=== PATIENT | male | born 1965 | race Caucasian/White ===

== ENCOUNTER → 2021-03-19 10:46 | Outpatient (BNVA) | payer SELFPAY | PROVIDERS: Family Provider Nurse Practitioner Family; PCP Nurse Practitioner Family; Visit Provider Emergency Medicine | DX: R10.11 Right upper quadrant pain (principal); R11.0 Nausea; R10.9 Unspecified abdominal pain | CPT/HCPCS: 80053; 83690; 85025 ==

== ENCOUNTER 2021-04-22 08:23 | Outpatient (CLI) | payer SELFPAY ==
--- NOTE | 2021-04-22 08:45 | US_ITS ---
WS: [id number] RIGHT UPPER QUADRANT ULTRASOUND HISTORY: R10.9 - Unspecified abdominal pain COMPARISON: None available. Liver: 13.7 cm in length. Normal size liver. No bile duct dilatation or mass. Gallbladder: Normally distended. Cholelithiasis without acute cholecystitis. There is very mild thick ening of the gallbladder wall. Gallbladder wall measures just greater than 3 mm. CBD: 0.3 cm Pancreas: Not well visualized. Right kidney: 11.0 cm in length. Normal size and echogenicity. No hydronephrosis or mass. Aorta and IVC: Unremarkable abdominal aorta and IVC. No ascites. US/US gall bladder [id number] IMPRESSION: 1. Cholelithiasis with mild diffuse gallbladder wall thickening. No evidence f or acute cholecystitis or Johnson's sign during this examination. 2. No bile duct dilatation.
== END 2021-04-22 08:24 | disposition home or self-care (01) ==
PROVIDERS: PCP Nurse Practitioner Family; Visit Provider Emergency Medicine
DX: R10.9 Unspecified abdominal pain (principal); K80.20 Calculus of gallbladder without cholecystitis without obstruction
CPT/HCPCS: 76705

== ENCOUNTER → 2022-02-21 08:19 | Outpatient (BNVA) | payer MEDICAID, SELFPAY | PROVIDERS: PCP Nurse Practitioner Family; Referring Provider Emergency Medicine; Visit Provider Surgery | DX: K80.20 Calculus of gallbladder without cholecystitis without obstruction (principal) | CPT/HCPCS: 99203 ==

== ENCOUNTER 2022-05-22 21:04 | Observation (INO) | payer MEDICAID, SELFPAY ==
--- NOTE | 2022-05-22 21:11 | USR_ITS ---
PROCEDURE INFORMATION: Exam: US Abdomen, Limited; Right Upper Quadrant Exam date and time: 05/22/2022 9:44 PM Age: 56 years old Clinical indication: Abdominal pain; Additional info: Abd pain TECHNIQUE: Imaging protocol: Real time ultrasound of the abdomen with image documentation. Limited exam focused on the right upper quadrant. COMPARISON: US gall bladder [id number] 04/22/2021 8:35 AM FINDINGS: Liver: Normal. No masses. Gallbladder: Normal. No gallstones. There is no gallbladder wall thickening. Negative sonographic Johnson sign. Biliary ducts: Normal. No stones. No dilation. Pancreas: Visualized pancreas is unremarkable. Right kidney: Right kidney measures 11.7 cm in length. No mass. No hydronephrosis. US/US gall bladder [id number] IMPRESSION: No acute findings.
[2022-05-22 21:13] VITALS: BP 133/100; PULSE 107; RESP 18; TEMP 36.8; O2SAT 93; BMI 23.3
--- NOTE | 2022-05-22 21:14 | W.ED.ABDPA2 ---
HPI - Abdominal Pain General: Chief Complaint: Abdominal Pain Stated Complaint: ABD Pain Time Seen by Provider: 05/22/22 21:08 Source: patient Mode of arrival: ambulatory Limitations: no limitations History of Present Illness: 56-year-old male has a history of cholelithiasis since had abdominal pain in the past. States he had seen a surgeon back in January was going to have an outpatient cholecystectomy but states that he was busy and never got it done. He states that over the last 2 days has been having right upper quadrant abdominal pain again. Said some nausea denies any vomiting. States pain currently is a 5 out of 10 denies any worsening proving factors denies any fevers. Denies any radiation of the pain. Associated Symptoms: Denies chills, diarrhea, dysuria, fever(s), nausea and vomiting Review of Systems Const: Denies: fever(s), chills, body aches or change in appetite Eyes: Denies: blurry vision or eye discomfort ENMT: Denies: throat pain or dental pain Card: Denies: chest pain Resp: Denies: dyspnea GI: Reports: abdominal pain; Denies: nausea, vomiting or diarrhea : Denies: dysuria Musc: Denies: neck pain or back pain Skin/Breast: Denies: rash Neuro: Denies: headache(s) Psych: Denies: depression Johnathan/Lymph: Denies: easy bruising All/Imm: Denies: urticaria PFSH ED PFSH: Medical History Cholelithiases Family History Other CAD (coronary artery disease) Chronic kidney disease (CKD) Diabetes Hypertension Denies family history of Dementia Anesthesia complication Lung disease Stroke Social History Smoking and tobacco status: current every day smoker Alcohol intake: never Lives independently: Yes Physical Exam Const: COMMON NORMALS: no acute distress, patient oriented x3 and healthy appearing HENMT: COMMON NORMALS: normocephalic and atraumatic HEAD & SCALP: normocephalic and atraumatic Eye: COMMON NORMALS: Equal, round and reactive pupils present and EOMs intact bilaterally PUPIL: Yes Equal, round and reactive pupils present Neck/C-Spine: COMMON NORMALS: full ROM and supple Chest: COMMONS NORMALS: normal inspection of the chest and normal palpation of entire chest wall Resp: COMMON NORMALS: normal respiratory effort, No retractions, No use of accessory muscles and clear to auscultation bilaterally AUSCULTATION: clear to auscultation bilaterally Cardio: COMMON NORMALS: regular rate, regular rhythm and No murmurs present (Cardio) RATE: regular rate RHYTHM: regular rhythm GI: COMMON NORMALS: Normal to inspection, nondistended, normoactive bowel sounds present, Soft to palpation and no masses PALPATION: Yes Soft to palpation and Yes Tenderness to palpation present (GI) Details: RUQ Extremity: COMMON NORMALS: normal to inspection and full ROM Neuro: COMMON NORMALS: patient oriented x3, moves all extremities and no focal motor deficits Psych: COMMON NORMALS: mental status grossly normal, Normal thought process present and cooperative THOUGHT PROCESS: Normal thought process present Skin: COMMON NORMALS: no rashes or lesions noted and no wounds GENERAL SKIN EXAM: no rashes or lesions noted Course Vital Signs: Vital signs: Vital Signs Temperature 98.2 F 05/22/22 21:13 Pulse Rate 107 H 05/22/22 21:13 Respiratory Rate 20 H 05/22/22 21:27 Blood Pressure 133/100 05/22/22 21:13 Pulse Oximetry 93 05/22/22 21:13 MDM - Abdominal Pain Medical Decision Making Patient presents here with abdominal pain he does have an elevated white count CT finding concerning for cholecystitis. I did speak to surgery on-call will admit at this time for planned cholecystectomy. Lab Data : 05/22/22 21:10 05/22/22 21:10 Labs/Radiology: Radiology Impressions Gallbladder Ultrasound 05/22/22 21:11 IMPRESSION: No acute findings. ADDENDUM: 05/22/[id number] abdomen/pelvis report. Gallstones are present within the gallbladder and better appreciated on CT including a 2 cm stone in the gallbladder neck. There is also mild edematous wall thickening of the gallbladder and distension which is also better appreciated on CT. Abdomen/Pelvis CT 05/22/22 22:06 IMPRESSION: Cholelithiasis with a 2 cm stone at the gallbladder neck and mild edematous wall thickening and distention of the gallbladder. These findings may reflect acute cholecystitis in the appropriate clinical context. COMMENTS: Consistent with the [employer]'s Incidental Findings Committee white paper (J Am Terrance Radiol 2018): Any incidental renal lesion less than 1 cm or classified as too small to characterize, or any incidental cystic renal lesion characterized as simple-appearing, is likely benign. No follow-up imaging is recommended for these lesions per consensus recommendations based on imaging criteria. Laboratory Results WBC 17.3 10^3/uL (4.0-10.0) H 05/22/22 21:10 RBC 5.98 10^6/uL (4.1-5.3) H 05/22/22 21:10 Hgb 18.4 g/dL (11.7-16.6) H 05/22/22 21:10 Hct 51.8 % (42.0-52.0) 05/22/22 21:10 MCV 86.6 fl (80-94) 05/22/22 21:10 MCH 30.8 pg (28.0-34.0) 05/22/22 21:10 MCHC 35.5 g/dL (30.0-36.0) 05/22/22 21:10 RDW 13.2 % (12.1-15.1) 05/22/22 21:10 Plt Count 265 10^3/cmm (130-400) 05/22/22 21:10 MPV 10.2 fL (7.4-10.4) 05/22/22 21:10 Neut % (Auto) 74.8 % 05/22/22 21:10 Lymph % (Auto) 14.2 % 05/22/22 21:10 [place] % (Auto) 9.3 % 05/22/22 21:10 Eos % (Auto) 0.9 % 05/22/22 21:10 Baso % (Auto) 0.3 % 05/22/22 21:10 Neut # (Auto) 12.94 10^3/uL (1.8-7.7) H 05/22/22 21:10 Lymph # (Auto) 2.5 10^3/uL (0.8-4.8) 05/22/22 21:10 [place] # (Auto) 1.6 10^3/uL (0.2-0.9) H 05/22/22 21:10 Eos # (Auto) 0.2 10^3/uL (0.0-0.8) 05/22/22 21:10 Baso # (Auto) 0.1 10^3/uL (0.0-0.1) 05/22/22 21:10 Nucleated RBC % (auto) 0 % 05/22/22 21:10 Nucleated RBCs # 0.0 /100WBC 05/22/22 21:10 Sodium 137 mmol/L (136-145) 05/22/22 21:10 Potassium 3.4 mmol/L (3.5-5.1) L 05/22/22 21:10 Chloride 98 mmol/L (98-107) 05/22/22 21:10 Carbon Dioxide 26 mmol/L (22-29) 05/22/22 21:10 Anion Gap 16.4 (5-19) 05/22/22 21:10 BUN 4 mg/dL (6-20) L 05/22/22 21:10 Creatinine 0.8 mg/dL (0.7-1.2) 05/22/22 21:10 GFR Calculation 100.7 mL/min (90-130) 05/22/22 21:10 Glucose 97 mg/dL (65-115) 05/22/22 21:10 Calculated Osmolality 281 mOsm/kg (285-295) L 05/22/22 21:10 Calcium 10.2 mg/dL (8.5-10.5) 05/22/22 21:10 Total Bilirubin 0.6 mg/dL (0.15-1.2) 05/22/22 21:10 AST 12 U/L (0-40) 05/22/22 21:10 ALT 11 U/L (0-41) 05/22/22 21:10 Alkaline Phosphatase 110 IU/L (40-130) 05/22/22 21:10 Total Protein 8.3 g/dL (6.6-8.7) 05/22/22 21:10 Albumin 4.8 g/dL (3.5-5.2) 05/22/22 21:10 Globulin 3.5 g/dL (1.3-4.6) 05/22/22 21:10 Lipase 18 U/L (13-60) 05/22/22 21:10 Discharge Plan Discharge Patient Disposition: Placed in Observation Clinical Impression: Acute cholecystitis Coding Level of Care Code ED Generating Station Mechanic for Chg Fwd Exam Comprehensive
[2022-05-22 21:27] VITALS: RESP 20
[2022-05-22] MEDS: morphine 4 mg/mL SDV 1 mL IVP (21:27)
[2022-05-22] MEDS: ondansetron 2 mg/ML SDV 2 mL 4 MG IVP (21:27)
[2022-05-22] MEDS: sodium chloride 0.9% 1,000 ML 999 ML IV (21:36)
[2022-05-22 21:59] LABS: Basophils # 0.1 10^3/uL (0.0-0.1); Basophils % 0.3 %; Eosinophils # 0.2 10^3/uL (0.0-0.8); Eosinophils % 0.9 %; Hematocrit 51.8 % (42.0-52.0); Hemoglobin 18.4 g/dL (11.7-16.6); Lymphocytes # 2.5 10^3/uL (0.8-4.8); Lymphocytes % 14.2 %; Mean Corpuscular HGB Conc 35.5 g/dL (30.0-36.0); Mean Corpuscular Hemoglobin 30.8 pg (28.0-34.0); Mean Corpuscular Volume 86.6 fl (80-94); Mean Platelet Volume 10.2 fL (7.4-10.4); Monocytes # 1.6 10^3/uL (0.2-0.9); Monocytes % 9.3 %; Neutrophils # 12.94 10^3/uL (1.8-7.7); Neutrophils % 74.8 %; Nucleated Red Blood Cells % 0 %; Platelet Count 265 10^3/cmm (130-400); Red Blood Count 5.98 10^6/uL (4.1-5.3); Red Cell Distribution Width 13.2 % (12.1-15.1); White Blood Count 17.3 10^3/uL (4.0-10.0)
[2022-05-22 22:01] LABS: Alanine Aminotransferase 11 U/L (0-41); Albumin Level 4.8 g/dL (3.5-5.2); Alkaline Phosphatase 110 IU/L (40-130); Anion Gap 16.4 (5-19); Aspartate Amino Transferase 12 U/L (0-40); Blood Urea Nitrogen 4 mg/dL (6-20); Calcium 10.2 mg/dL (8.5-10.5); Carbon Dioxide 26 mmol/L (22-29); Chloride 98 mmol/L (98-107); Globulin 3.5 g/dL (1.3-4.6); Glomerular Filtration Rate 100.7 mL/min (90-130); Glucose 97 mg/dL (65-115); Lipase 18 U/L (13-60); Osmolality Calculated 281 mOsm/kg (285-295); Potassium 3.4 mmol/L (3.5-5.1); Sodium 137 mmol/L (136-145); Total Bilirubin 0.6 mg/dL (0.15-1.2); Total Protein 8.3 g/dL (6.6-8.7)
--- NOTE | 2022-05-22 22:06 | CTR_ITS ---
PROCEDURE INFORMATION: Exam: CT Abdomen And Pelvis With Contrast Exam date and time: 05/22/2022 10:32 PM Age: 56 years old Clinical indication: Abdominal pain; Localized; Right upper quadrant (ruq); Patient HX: C/O ruq pain w known cholelithiasis; Additional info: Abd pain TECHNIQUE: Imaging protocol: Computed tomography of the abdomen and pelvis with contrast. Radiation optimization: All CT scans at this facility use at least one of these dose optimization techniques: automated exposure control; mA and/or kV adjustment per patient size (includes targeted exams where dose is matched to clinical indication); or iterative reconstruction. Contrast material: OMNI 350; Contrast volume: 95 ml; Contrast route: INTRAVENOUS (IV); COMPARISON: US gall bladder [id number] 05/22/2022 9:44 PM RADIATION DOSE METRICS: Total DLP (mGy-cm): 939.9 FINDINGS: Liver: Normal. No mass. Gallbladder and bile ducts: A couple 2 cm stones are noted within the gallbladder body and neck. There is mild distension of the gallbladder and mild edematous wall thickening measuring 4 mm. Pancreas: Normal. No ductal dilation. Spleen: Normal. No splenomegaly. Adrenal glands: Normal. No mass. Kidneys and ureters: A few punctate cysts noted within both kidneys. No hydronephrosis. Stomach and bowel: Colonic diverticulosis without findings of acute diverticulitis. No obstruction. No mucosal thickening. Appendix: No evidence of appendicitis. Intraperitoneal space: Unremarkable. No free air. No significant fluid collection. Vasculature: Unremarkable. No abdominal aortic aneurysm. Lymph nodes: Unremarkable. No enlarged lymph nodes. Urinary bladder: Unremarkable as visualized. Reproductive: Unremarkable as visualized. Bones/joints: No acute fracture. Degenerative disc disease at L5-S1. Soft tissues: Unremarkable. CT/CT abdomen pelvis w con* [id number] IMPRESSION: Cholelithiasis with a 2 cm stone at the gallbladder neck and mild edematous wall thickening and distention of the gallbladder. These findings may reflect acute cholecystitis in the appropriate clinical context. COMMENTS: Consistent with the [place] [employer]'s Incidental Findings Committee white paper (J Am Terrance Radiol 2018): Any incidental renal lesion less than 1 cm or classified as too small to characterize, or any incidental cystic renal lesion characterized as simple-appearing, is likely benign. No follow-up imaging is recommended for these lesions per consensus recommendations based on imaging criteria.
[2022-05-22] MEDS: iohexol 350 mg/mL 100 mL Btl IV (22:37)
[2022-05-22] MEDS: piperacillin-tazobactam 3.375 GM in sodium chloride 0.9% (plus) 50 ML IV (23:30)
[2022-05-23] VITALS (22 sets, daily range): BP systolic 102–167; BP diastolic 66–91; PULSE 72–112; RESP 13–26; TEMP 36.1–37.4; O2SAT 91–96
[2022-05-23] MEDS: morphine 4 mg/mL SDV 1 mL IVP (00:30)
[2022-05-23] MEDS: sodium chloride 0.9% 1,000 ML 100 ML IV (00:30)
--- NOTE | 2022-05-23 00:47 | PC.NURSE ---
ADMIT NOTE Pt was received to floor from ER via wheelchair. A&O. c/o pain in right upper abdomen on arrival. Abd is soft with tenderness to RUQ. RN medicated with IV Morphine. Denies nausea at this time but says has had a little today. No vomiting. Says he was supposed to see in January to see about getting his gallbladder removed but he just didn't get around to it. IV fluids started at 100ml/hr rate. Aware of NPO orders. RN completing admission assessment
--- NOTE | 2022-05-23 06:15 | PC.NURSE ---
SHIFT SUMMARY Has rested well since to floor. Received IV Morphine X1 for RUQ abd pain. This morning says pain is much better and declines pain med at this time. No c/o nausea. Is wanting a drink of water badly. Is aware of need to stay NPO at least until Dr here this am. Given mouth swabs to use. IV infusing without difficulty at 100ml/hr rate.
--- NOTE | 2022-05-23 07:10 | PC.NURSE ---
Patient is gone to surgery at this time.
--- NOTE | 2022-05-23 07:13 | PC.NURSE ---
OR To OR via stretcher at 0700
--- NOTE | 2022-05-23 07:15 | ANES.PREANE2 ---
Pre-Anesthetic Assessment Height/Weight: Height 1.75 m Weight 71.668 kg Temp Pulse Resp BP Pulse Ox 98.2 F 97 18 156/91 93 05/23/22 04:36 05/23/22 04:36 05/23/22 04:36 05/23/22 04:36 05/23/22 04:36 Preop Diagnosis: cholecystitis Operation Date: 05/23/22 08:20 Proposed Procedures p Laparoscopic Cholecystectomy(Not Applicable) - Scott Kearney MD Familial anesthetic complications: none Was Beta Semaj taken within 24 hours: Yes Was Clonidine taken within 24 hours: N/A Last intake: 05/22/22 Social Tobacco and No alcohol Exam alert, oriented x 3 and regular rate & rhythm b/l expiratory wheezing Airway Submandibular: within normal limits Cervical ROM: within normal limits Mallampati: Class I Dentition: false Pulmonary Asthma CV/HEM Coronary Artery Disease and Hypertension K 3.4 Hepatic None reported GI Gastroesophageal Reflux Disease (Denies symptomatic reflux on empty stomach ) Chronic cholelithiasis with acute cholecystitis Metabolic None reported Musc/skel None reported Neuropsych None reported Anesthetic Plan ASA status: 3 (56 year old male w/ hx of smoking, CAD s/p stent, asthma) Anesthesia: Anesthesia Evaluation and General Other: We discussed risk and benefits of general anesthesia including PONV, sore throat (sometimes severe), corneal abrasion, positioning and peripheral nerve injuries, life threatening allergic reaction, post operative ICU admission requiring prolonged intubation, aspiration, stroke, heart attack, , and rare incidences of recall. Patient consents to proceed with general anesthesia. Risk of > 500 ml blood loss (7ml/kg in children): No Medications/Allergies Home Medications Medication Instructions Recorded Confirmed Last Taken Type albuterol sulfate 90 mcg/actuation 2 puff INHALATION Q6H PRN 02/15/22 05/23/22 Unknown History aerosol inhaler (ProAir HFA) lisinopril 5 mg tablet 5 mg PO DAILY 02/15/22 05/23/22 05/22/22 History metoprolol tartrate 25 mg tablet 25 mg PO BID 02/15/22 05/23/22 05/22/22 History simvastatin 20 mg tablet 40 mg PO BEDTIME tab 02/15/22 05/23/22 05/22/22 History aspirin 81 mg chewable tablet 81 mg PO DAILY 05/23/22 05/23/22 05/22/22 History Allergies Allergy/AdvReac Type Severity Reaction Status Date / Time No Known Allergies Allergy Verified 02/22/22 17:20 Current Medications Generic Name Dose Route Start Last Admin Trade Name James PRN Reason Stop Dose Admin Sodium Chloride 1,000 mls @ 100 mls/hr 05/23/22 00:20 05/23/22 00:30 Sodium Chloride 0.9% IV 100 mls/hr .Q10H POLLY Administration Morphine Sulfate 4 mg 05/23/22 00:20 05/23/22 00:30 Morphine 4 Mg/Ml Sdv 1 Ml IVP 4 mg Q4H PRN Administration SEVERE PAIN PFSH Anesthesia Medical History Cholelithiases Family History Other CAD (coronary artery disease) Chronic kidney disease (CKD) Diabetes Hypertension Denies family history of Dementia Anesthesia complication Lung disease Stroke Social History Smoking and tobacco status: current every day smoker Alcohol intake: never Lives independently: Yes Data Anesthesia : 05/22/22 21:10 05/22/22 21:10 Short CBC 05/22/22 Range/Units 21:10 WBC 17.3 H (4.0-10.0) 10^3/uL Hgb 18.4 H (11.7-16.6) g/dL Hct 51.8 (42.0-52.0) % MCV 86.6 (80-94) fl Plt Count 265 (130-400) 10^3/cmm Neut % (Auto) 74.8 % Neut # (Auto) 12.94 H (1.8-7.7) 10^3/uL BMP 05/22/22 21:10 Sodium 137 Potassium 3.4 L Chloride 98 Carbon Dioxide 26 BUN 4 L Creatinine 0.8 Glucose 97 Calcium 10.2 Liver Function 05/22/22 Range/Units 21:10 Total Bilirubin 0.6 (0.15-1.2) mg/dL AST 12 (0-40) U/L ALT 11 (0-41) U/L Alkaline Phosphatase 110 (40-130) IU/L Albumin 4.8 (3.5-5.2) g/dL Cardiac Studies: No Data to Display
[2022-05-23] MEDS: ipratropium-albuterol 3 mL Neb (07:17)
--- NOTE | 2022-05-23 07:20 | ECG_ITS ---
[facility] Test Date: 2022-05-23 Pat Name: Rex Damico Department: Room: 255 Gender: Male Marketing Campaign Analyst: : 1965 Requested By: Tony Lombardi Order Number: [id number] Braulio MD: Tesha Saul M.D. Measurements Intervals Vendor Rate: 116 P: 19 AR: 151 QRS: 27 QRSD: 100 T: 9 QT: 312 QTc: 434 Interpretive Statements SINUS TACHYCARDIA PROBABLE INFERIOR MYOCARDIAL INFARCTION , PROBABLY OLD [35 ms Q WAVE IN II/aVF] No previous ECG available for comparison Electronically Signed On 05-23-2022 20:49:09 CDT by Tesha Saul M.D. [email or web address] [email or web address] [email or web address] regional medical [id number]
--- NOTE | 2022-05-23 07:24 | P.HP_ITS ---
Providers/Chief Complaint Admitting Physician: Scott Kearney MD Primary Care Provider: ASHLY Tarango Chief Complaint: ABD Pain History of Present Illness Rex Damico is a 56 year old male who has been dealing with abdominal pain for the last 2 to 3 years. The pain is mainly after eating fatty foods. Patient had seen Dr. Rodas in January but at that point he was busy with work and therefore could not schedule surgery. He presented to the ER last night with complaints of abdominal pain since yesterday afternoon associate with nausea. He denies any vomiting, fevers or chills. No constipation or diarrhea. Review of Systems General: Reports: 10 or more systems reviewed and unremarkable except in HPI and below Medications/Allergies Home Medications Medication Instructions Recorded Confirmed Last Taken Type albuterol sulfate 90 mcg/actuation 2 puff INHALATION Q6H PRN 02/15/22 05/23/22 Unknown History aerosol inhaler (ProAir HFA) lisinopril 5 mg tablet 5 mg PO DAILY 02/15/22 05/23/22 05/22/22 History metoprolol tartrate 25 mg tablet 25 mg PO BID 02/15/22 05/23/22 05/22/22 History simvastatin 20 mg tablet 40 mg PO BEDTIME tab 02/15/22 05/23/22 05/22/22 History aspirin 81 mg chewable tablet 81 mg PO DAILY 05/23/22 05/23/22 05/22/22 History Allergies Allergy/AdvReac Type Severity Reaction Status Date / Time No Known Allergies Allergy Verified 02/22/22 17:20 PFSH Acute PFSH: Medical History (Updated 05/23/22 @ 07:29 by Scott Kearney MD) COPD (chronic obstructive pulmonary disease) Hyperlipidemia Hypertension Myocardial infarct Surgical History (Updated 05/23/22 @ 07:29 by Scott Kearney MD) History of tonsillectomy Hx of heart artery stent 2011 Family History Other CAD (coronary artery disease) Chronic kidney disease (CKD) Diabetes Hypertension Denies family history of Dementia Anesthesia complication Lung disease Stroke Social History Smoking and tobacco status: current every day smoker Alcohol intake: never Lives independently: Yes Vitals/I&O/Wt Last Vital Signs Temp 98.2 F 05/23/22 04:36 Pulse 97 05/23/22 04:36 Resp 18 05/23/22 04:36 BP 156/91 05/23/22 04:36 Pulse Ox 93 05/23/22 04:36 05/22/22 05/23/22 05/23/22 22:59 06:59 14:59 Intake Total 1050 / 1050 Balance 1050 / 1050 Weight last 48 hrs Weight 158 lb Physical Exam Narrative: HEENT: Normocephalic Eye: Sclera /conjunctiva normal Respiratory and chest: Bilateral clear breath sounds on auscultation Cardiovascular: Normal S1 and S2 heart sounds Abdomen: Soft to palpation, tender right upper quadrant, voluntary guarding, no rigidity Neurological: Oriented to place person and time Skin: Intact, no lesions appreciated on gross exam Data : 05/22/22 21:10 05/22/22 21:10 A&P Assessment and plan (1) Acute cholecystitis: 56-year-old male with 24-hour history of abdominal pain and nausea with known history of cholelithiasis. His WBC is 17 K, LFTs are normal. CT scan shows acute calculus cholecystitis with a 2 cm stone Plan for laparoscopic possible open cholecystectomy. Procedure, risks, benefits and alternatives have been discussed with the patient who wishes to proceed with surgery. IV Zosyn Status: Acute Attestations Medical Necessity Statement*: Acute cholecystitis Coding Level of Care Code Acute Internet Sales Director for [facility] Reyna Diagnoses Acute cholecystitis K81.0
[2022-05-23] MEDS: sodium chloride 0.9% 1,000 ML 30 ML IV (07:25)
[2022-05-23] MEDS: piperacillin-tazobactam 3.375 GM in sodium chloride 0.9% (plus) 50 ML IV ×3 (08:10→21:52)
--- NOTE | 2022-05-23 09:49 | PC.CHAP ---
Pastoral Care Encounter/Spiritual Assessment Type of Contact [] Declined imaging tech visit [] Patient/Family/Request visit [] Outpatient visit [] Follow-up visit [] Physician referral [] Code/Alert [x] Routine visit [] Staff referral [] Actively dying [] Patient sleeping [] Family support [] [x] Out of room [] Palliative care [] [] Receiving care in room [] Pre-surgical visit [] Trauma [] Long length of stay [] ICU visit [] Other: Relational/Emotional Strength [] Patient feels connected with others/family/visitors/staff [] Distress [] Loneliness/isolation [] Abandonment Spirituality of Patient [] Person of Lexie [] Attends Jain of their Lexie [] Believes in Prayer [] Reads Bible or Yazdanism materials [] There are Spiritual issues to be addressed Production Supervisor Off Shift Interventions [] Prayer [] Active listening [] Non-anxious presence [] Spiritual/emotional support [] Crisis/trauma care [] Spiritual counseling [] Bereavement support [] Provided bereavement packet [] Provided Bible/devotional materials [] Provided toy/stuffed animal, coloring book to patient or family member [] Provided Communion [] Anointing/[place] [] Salvation [] Completed spiritual assessment [] Other: Impact on Illness or Injury [] Angry [] Fearful [] Anxious [] Often cries [] Exhaustion [] Unable to work [] Unable to attend mandaeism [] Unable to walk/stand [] Unable to read [] Unable to drive [] Unable to eat/drink [] Unable to sleep [] Unable to be with family [] Patient intubated [] Other: Summary Time spent with patient
--- NOTE | 2022-05-23 09:53 | P.OP_ITS ---
Operative Report Date of procedure: May 23, 2022 Pre-op diagnosis: Acute calculus cholecystitis Post-op diagnosis: Acute calculus cholecystitis Bleeding from the gallbladder fossa-200 cc - Surgicel placed in the gallbladder fossa Procedure done: Laparoscopic cholecystectomy Specimens removed/disposition: Gallbladder Surgeon: Scott Kearney Anesthesia: General Condition: stable Disposition: PACU Procedure: The patient was taken to the operating room and was intubated under general anesthesia. After the antibiotic had been administered, the abdomen was prepped and draped in a sterile manner. Using a #15 blade, a 1 centimeter infraumbilical curvilinear incision was made and using an open Leander technique the peritoneal cavity was entered. A 10 millimeter port was placed and 15 millimeters of pneumoperitoneum was created. A 10 millimeter, 30 degrees scope was then introduced. Three 5 millimeter ports were placed in the epigastric, midclavicular and the anterior axillary line two fingerbreadths below the costal margin on the right side under the direct visualization. The gallbladder was acutely inflamed and distended. The gallbladder was decompressed using an aspiration needle. Ratcheted forceps were introduced into the lateral most port and was used to retract the fundus of the gallbladder cephalad and using forceps the infundibulum of the gallbladder was retracted laterally. Using L-hook cautery the peritoneum overlying the Calot's triangle was opened medially and laterally until the cystic duct and the cystic artery were skeletonized. Di ssection was carried along the body of the gallbladder and after ensuring critical view of safety, 4 clips applied on the cystic duct and 3 clips applied on the cystic artery and cut leaving, 3 clips on the remaining portion of the duct and 2 clips on the remaining portion of the artery. The rest of the gallbladder was dissected off the liver using L-hook cautery. There was no appropriate plane between the gallbladder and the liver due to the inflammation resulting in bleeding from the gallbladder fossa. About 200 cc of blood loss was estimated. Hemostasis was finally ensured with electrocautery and a 4 x 8 cm Surgicel was placed in the gallbladder fossa. There was no bleeding or bile leaage noted from the gallbladder fossa and the clips appeared to be in place. An EndoCatch bag was introduced to remove the gallbladder. All the ports were removed under direct visualization and there was no bleeding noted from the port sites. The fascia of the umbilicus was closed using [id number] 0 Vicryl sutures and the subcutaneous tissue was approximated using 3-0 Vicryl sutures. The skin at all four ports were closed using 4-0 Monocryl and Dermabond. A total of 10 millimeters of 0.25% Marcaine was infiltrated around the port sites. The patient was stable throughout the procedure.
[2022-05-23] MEDS: ipratropium 0.5 mg/2.5 mL Neb INHALATION (10:12)
[2022-05-23] MEDS: ondansetron 2 mg/ML SDV 2 mL 4 MG IVP ×2 (10:22→12:23)
[2022-05-23] MEDS: dextrose 5%-sod chloride 0.9% 1,000 ML 100 ML IV ×2 (10:59→21:53)
[2022-05-23 11:28] LABS: Glucose Point of Care 173 mg/dL (70-110)
--- NOTE | 2022-05-23 11:30 | PC.NURSE ---
Patient resting in bed with eyes closed. Respirations even and in no apparent distress.
[2022-05-23] MEDS: HYDROcodone-acetaminophen 5-325 mg Tablet 1 TAB PO ×2 (12:25→19:09)
--- NOTE | 2022-05-23 13:40 | ANE.PACU2 ---
Inpatient post-anesthesia follow up: Airway intact: Yes Vital signs: Temperature 97.5 F Pulse Rate 80 Respiratory Rate 18 Blood Pressure 121/74 Pulse Oximetry 96 Oxygen Delivery Me thod Nasal Cannula Oxygen Flow Rate 4 Fraction of Inspir ed Oxygen Hydration adequate: Yes Nausea and vomiting: No Pain level: 1 Mental status: Baseline
[2022-05-23] MEDS: sennosides-docusate Tablet 1 TAB PO (17:26)
[2022-05-23] MEDS: acetaminophen 325 mg Tablet 650 MG PO (17:27)
[2022-05-23] MEDS: atorvastatin 40 mg Tablet 20 MG PO (21:52)
[2022-05-23] MEDS: metoprolol tartrate 25 mg Tablet PO (21:52)
[2022-05-23] MEDS: morphine 4 mg/mL SDV 1 mL 3 MG IVP (21:58)
[2022-05-24] MEDS: HYDROcodone-acetaminophen 5-325 mg Tablet 1 TAB PO ×3 (00:09→11:24)
[2022-05-24] MEDS: ondansetron 2 mg/ML SDV 2 mL 4 MG IVP ×2 (00:10→11:41)
[2022-05-24 03:30] LABS: Basophils % 0.1 %; Hematocrit 39.4 % (42.0-52.0); Hemoglobin 13.2 g/dL (11.7-16.6); Lymphocytes % 5.7 %; Mean Corpuscular HGB Conc 33.5 g/dL (30.0-36.0); Mean Corpuscular Hemoglobin 30.3 pg (28.0-34.0); Mean Corpuscular Volume 90.6 fl (80-94); Mean Platelet Volume 9.9 fL (7.4-10.4); Monocytes # 1.8 10^3/uL (0.2-0.9); Monocytes % 10.7 %; Neutrophils # 13.97 10^3/uL (1.8-7.7); Nucleated Red Blood Cells % 0 %; Platelet Count 197 10^3/cmm (130-400); Red Blood Count 4.35 10^6/uL (4.1-5.3); Red Cell Distribution Width 13.8 % (12.1-15.1); White Blood Count 16.8 10^3/uL (4.0-10.0)
[2022-05-24 05:00] VITALS: BP 135/74; PULSE 84; RESP 18; TEMP 36.6; O2SAT 92
[2022-05-24] MEDS: dextrose 5%-sod chloride 0.9% 1,000 ML 100 ML IV (05:15)
[2022-05-24] MEDS: piperacillin-tazobactam 3.375 GM in sodium chloride 0.9% (plus) 50 ML IV (05:16)
[2022-05-24 08:00] VITALS: BP 130/71; PULSE 73; RESP 15; TEMP 36.6; O2SAT 91
[2022-05-24] MEDS: metoprolol tartrate 25 mg Tablet PO (08:23)
[2022-05-24] MEDS: sennosides-docusate Tablet 1 TAB PO (08:23)
[2022-05-24] MEDS: acetaminophen 325 mg Tablet 650 MG PO (08:24)
[2022-05-24] MEDS: lisinopril 5 mg Tablet PO (08:24)
--- NOTE | 2022-05-24 11:35 | PC.NURSE ---
Patient ambulated into the hallway and to the nurses station without difficulty. Patient denies being dizzy
[2022-05-24 12:15] VITALS: BP 122/74; PULSE 75; RESP 14; TEMP 36.9; O2SAT 92
[2022-05-24 12:57] VITALS: BP 122/74; PULSE 75; RESP 14; TEMP 36.9; O2SAT 92
--- NOTE | 2022-05-24 12:59 | PC.NURSE ---
IV removed intact. Patient tolerated well. Patient is A&Ox3. Respirations even and non-labored on room air. Reviewed patient discharge instructions with patient. Patient verbalized understanding of not lifting more than 10 lbs as directed by doctor or driving while taking is Hydrocodone. Patient verbalized understanding. Patient wheel chaired to private car.
--- NOTE | 2022-05-24 13:01 | P.DS_ITS ---
Discharge Providers Date of Admission: 05/22/22 23:14 Date of Discharge: May 24, 2022 Attending Provider at Admission: Scott Kearney MD Attending Provider at Discharge: Scott Kearney MD Primary Care Provider: ASHLY Tarango Diagnoses at Discharge Discharge Diagnosis (1) Acute cholecystitis: Status: Resolved (2) Status post laparoscopic cholecystectomy: Status: Acute Reason for Visit Reason for Visit: Abdominal pain Brief History: Rex Damico is a 56 year old male who has been dealing with abdominal pain for the last 2 to 3 years.? The pain is mainly after eating fatty foods.? Patient had seen Dr. Rodas in January but at that point he was busy with work and therefore could not schedule surgery.? He presented to the ER last night with complaints of abdominal pain since yesterday afternoon associate with nausea.? He denies any vomiting, fevers or chills.? No constipation or diarrhea. Hospital Course Hospital Course The patient was admitted to the hospital and underwent laparoscopic cholecystectomy. The surgery was difficult due to the significant amount of inflammation. Patient was kept overnight after surgery for monitoring and pain control. At time of discharge the following day he was tolerating a soft diet, his vital signs are stable and his incision was clean dry and intact. Discharge Data Studies Completed and Pending Completed Studies During Hospitalization Category Date Time Status CT abdomen pelvis w con* [id number] Urgent Cat Scan 05/22/22 22:06 Completed US gall bladder [id number] Urgent Ultrasound 05/22/22 21:11 Completed Pending at discharge Category Date Time Status ES surgery / GI images Routine Exams 05/23/22 07:02 Taken Complete Blood Count w/Auto AM LABS Lab 05/25/22 04:00 Ordered Complete Blood Count w/Auto AM LABS Lab 05/26/22 04:00 Ordered Pathology: Surgical [PTH] Routine Pth 05/23/22 09:46 Received Radiology Impressions Gallbladder Ultrasound 05/22/22 21:11 IMPRESSION: No acute findings. ADDENDUM: 05/22/[id number] abdomen/pelvis report. Gallstones are present within the gallbladder and better appreciated on CT including a 2 cm stone in the gallbladder neck. There is also mild edematous wall thickening of the gallbladder and distension which is also better appreciated on CT. Abdomen/Pelvis CT 05/22/22 22:06 IMPRESSION: Cholelithiasis with a 2 cm stone at the gallbladder neck and mild edematous wall thickening and distention of the gallbladder. These findings may reflect acute cholecystitis in the appropriate clinical context. COMMENTS: Consistent with the [employer]'s Incidental Findings Committee white paper (J Am Terrance Radiol 2018): Any incidental renal lesion less than 1 cm or classified as too small to characterize, or any incidental cystic renal lesion characterized as simple-appearing, is likely benign. No follow-up imaging is recommended for these lesions per consensus recommendations based on imaging criteria. Laboratory Results WBC 16.8 10^3/uL (4.0-10.0) H 05/24/22 03:06 RBC 4.35 10^6/uL (4.1-5.3) 05/24/22 03:06 Hgb 13.2 g/dL (11.7-16.6) 05/24/22 03:06 Hct 39.4 % (42.0-52.0) L 05/24/22 03:06 MCV 90.6 fl (80-94) 05/24/22 03:06 MCH 30.3 pg (28.0-34.0) 05/24/22 03:06 MCHC 33.5 g/dL (30.0-36.0) D 05/24/22 03:06 RDW 13.8 % (12.1-15.1) 05/24/22 03:06 Plt Count 197 10^3/cmm (130-400) 05/24/22 03:06 MPV 9.9 fL (7.4-10.4) 05/24/22 03:06 Neut % (Auto) 83.0 % 05/24/22 03:06 Lymph % (Auto) 5.7 % 05/24/22 03:06 [place] % (Auto) 10.7 % 05/24/22 03:06 Eos % (Auto) 0.0 % 05/24/22 03:06 Baso % (Auto) 0.1 % 05/24/22 03:06 Neut # (Auto) 13.97 10^3/uL (1.8-7.7) H 05/24/22 03:06 Lymph # (Auto) 1.0 10^3/uL (0.8-4.8) 05/24/22 03:06 [place] # (Auto) 1.8 10^3/uL (0.2-0.9) H 05/24/22 03:06 Eos # (Auto) 0.0 10^3/uL (0.0-0.8) 05/24/22 03:06 Baso # (Auto) 0.0 10^3/uL (0.0-0.1) 05/24/22 03:06 Nucleated RBC % (auto) 0 % 05/24/22 03:06 Nucleated RBCs # 0.0 /100WBC 05/24/22 03:06 Sodium 137 mmol/L (136-145) 05/22/22 21:10 Potassium 3.4 mmol/L (3.5-5.1) L 05/22/22 21:10 Chloride 98 mmol/L (98-107) 05/22/22 21:10 Carbon Dioxide 26 mmol/L (22-29) 05/22/22 21:10 Anion Gap 16.4 (5-19) 05/22/22 21:10 BUN 4 mg/dL (6-20) L 05/22/22 21:10 Creatinine 0.8 mg/dL (0.7-1.2) 05/22/22 21:10 GFR Calculation 100.7 mL/min (90-130) 05/22/22 21:10 Glucose 97 mg/dL (65-115) 05/22/22 21:10 POC Glucose 173 mg/dL (70-110) H 05/23/22 11:11 Calculated Osmolality 281 mOsm/kg (285-295) L 05/22/22 21:10 Calcium 10.2 mg/dL (8.5-10.5) 05/22/22 21:10 Total Bilirubin 0.6 mg/dL (0.15-1.2) 05/22/22 21:10 AST 12 U/L (0-40) 05/22/22 21:10 ALT 11 U/L (0-41) 05/22/22 21:10 Alkaline Phosphatase 110 IU/L (40-130) 05/22/22 21:10 Total Protein 8.3 g/dL (6.6-8.7) 05/22/22 21:10 Albumin 4.8 g/dL (3.5-5.2) 05/22/22 21:10 Globulin 3.5 g/dL (1.3-4.6) 05/22/22 21:10 Lipase 18 U/L (13-60) 05/22/22 21:10 Vitals Last Vital Signs Temp 98.4 F 05/24/22 12:15 Pulse 75 05/24/22 12:15 Resp 14 05/24/22 12:15 BP 122/74 05/24/22 12:15 Pulse Ox 92 05/24/22 12:15 Discharge Plan Discharge Patient Disposition: Home Condition: Stable Prescriptions: New hydrocodone-acetaminophen 5-325 mg tablet 1 tab PO Q6H PRN (Reason: pain) Qty: 20 0RF ondansetron HCl 4 mg tablet 4 mg PO Q8H 5 Days Qty: 15 0RF Senna with Docusate Sodium 8.6-50 mg tablet 1 tab-cap PO BID Qty: 30 0RF levofloxacin 750 mg tablet 750 mg PO DAILY 5 Days Qty: 5 0RF Continued simvastatin 20 mg tablet 40 mg PO BEDTIME 0RF lisinopril 5 mg tablet 5 mg PO DAILY 0RF metoprolol tartrate 25 mg tablet 25 mg PO BID 0RF albuterol sulfate [ProAir HFA] 90 mcg/actuation HFA aerosol inhaler 2 puff inhalation Q6H PRN (Reason: Shortness Of Breath) 0RF aspirin 81 mg Tablet,Chewable 81 mg PO DAILY 0RF Discharge Orders: Discharge Order (Routine); Ordered 05/24/22 Ordered By: Scott Kearney Referrals: Scott Kearney MD [Physician] - 06/07/22 9:15 am Patient Instructions: Hydrocodone/Acetaminophen (By mouth), Ondansetron (By mouth), Levofloxacin (By mouth), Senna (By mouth), Laparoscopic Cholecystectomy (GEN), Opioid Safety, Post Anesthesia Care Activity Restrictions/Additional Instructions: Diet Advance to normal diet as tolerated, increase fluid intake as much as possible. Activity Avoid strenuous activity for 2 weeks but continue with daily activities including walking as tolerated. Do not lift more than 10 pounds for 2 weeks Return to work/school You can return to work/ school whenever you feel ready as long as you don?t have to lift more than 10 pounds at work. If you have paperwork that needs to be completed for time off from work, please contact my office Driving You can resume driving once you stop using narcotic pain medications, and transition to non-opioid pain medications like Tylenol, Motrin, Aleve, etc. Medications Pain Take opioid pain medications as prescribed and transition to non-opioid pain medications like Tylenol, Motrin, Aleve etc. over the next few days. The goal of the pain medications is to make the pain bearable and not to be pain free since you recently had surgery. Resume all home medications after surgery as per the medication reconciliation list Nausea Nausea is common after surgery, take nausea medications as needed and stay on a liquid bland diet until nausea resolves. Constipation The combination of surgery, anesthesia and pain medications can result in constipation. Take stool softeners as prescribed. If you do not have a bowel movement in 3 days, please take an [id number] laxative like MiraLAX to address the constipation. Shower It is ok to shower but avoid getting the wound wet for 48 hours after surgery. Do not soak in bathtub, swimming pool or hot tub for 2 weeks. Wound care If glue has been used on your incisions after surgery, the glue on the incision will peel slowly over the next two weeks. The stitches used are dissolvable and will not need to be removed. Do not apply antibiotics or other medications on the incision Problems with the wound: you can develop some redness around the incision from bruising after surgery. If there is increasing pain, redness, tenderness around the incision with or without drainage, please contact my office to rule out an infection. Sometimes the skin at the incisions can separate, resulting in reopening of the wound. Cover the wound with antibiotic cream and sterile dressings and contact my office. Contact physician Call the office at [phone] during office hours or go the Emergency Room ?Fever to 100.4 or greater ?Shaking chills ?Pain that increases over time ?Redness, warmth, or pus draining from incision sites ?Persistent nausea or inability to take in liquids Discharge Attestations Time Spent in Discharge Care*: less than 30 min Quality Metrics Clinical Quality Measures [ No reported AMI, CVA or VTE this stay] Coding Level of Care Code Acute Chg FW DC note Diagnoses Acute cholecystitis K81.0 Status post laparoscopic cholecystectomy Z90.49
== END 2022-05-24 13:03 | disposition home or self-care (01) ==
LOC: ER 23:15 → MEDSURG 23:42
PROVIDERS: Admitting Provider Surgery; Emergency Provider Emergency Medicine; PCP Nurse Practitioner Family; Visit Provider Surgery
PROC: 0FT44ZZ Resection of Gallbladder, Percutaneous Endoscopic Approach (ICD-10-PCS; CPT 47562; principal; 2022-05-23 08:00)
DX: K80.10 Calculus of gallbladder with chronic cholecystitis without obstruction (principal); J44.9 Chronic obstructive pulmonary disease, unspecified; E78.5 Hyperlipidemia, unspecified; I10 Essential (primary) hypertension; I25.2 Old myocardial infarction; F17.200 Nicotine dependence, unspecified, uncomplicated; I25.10 Atherosclerotic heart disease of native coronary artery without angina pectoris; K21.9 Gastro-esophageal reflux disease without esophagitis; Z95.5 Presence of coronary angioplasty implant and graft; Z79.82 Long term (current) use of aspirin
CPT/HCPCS: 47562; 36415; 36416; 74177; 76705; 80053; 82962; 83690; 85025; 88304; 93005; 96365; 96367; 96375; 96376; 99285; G0378; J1100; J1170; J2250; J2270; J2370; J2405; J2543; J2704; J3010; J3490; J7030; J7644; Q9967

== ENCOUNTER → 2022-06-07 08:54 | Outpatient (BNVA) | payer MEDICAID, SELFPAY | PROVIDERS: PCP Nurse Practitioner Family; Visit Provider Surgery | DX: Z98.890 Other specified postprocedural states (principal) | CPT/HCPCS: 99024 ==

== ENCOUNTER 2025-01-13 07:45 | Outpatient (CLI) | payer MEDICAID, SELFPAY ==
--- NOTE | 2025-01-13 07:47 | MR_ITS ---
WS: [id number] MRI LUMBAR SPINE NONCONTRAST TECHNIQUE: Sagittal T1, T2 and STIR imaging. Axial T1 and T2 imaging. CLINICAL INFORMATION: CHRONIC MIDLINE LOW BACK PAIN W/SCIATICA COMPARISON: None. FINDINGS: Mild lumbar curve. No acute compression. Slight retrolisthesis L1 on L2 and L2 on L3. Disc desiccation L5-S1 with eccentric disc bulging. L1-L2: Narrowing of the RIGHT subarticular recess. L2-L3: Mild annular bulging. Narrowing of the LEFT greater than RIGHT subarticular recess. Mild facet arthropathy. Mild LEFT foraminal narrowing. L3-L4: Mild annular bulging. Mild facet arthropathy. Spinal canal and foramen are patent. L4-L5: Mild annular bulging. Slight effacement of the ventral thecal sac. Mild facet arthropathy. Mild LEFT foraminal narrowing. L5-S1: Disc bulge with osteophytic ridging. Slight impingement traversing S1 nerve roots. Moderate facet arthropathy. Bilateral foraminal protrusions with moderate LEFT greater than RIGHT foraminal narrowing. Chronic spondylolysis L5- S1. Endplate degenerative edema L5-S1. Visualized pelvic bony structures: Normal. Paravertebral soft tissues: Normal. MR/MR lumbar spine wo con* [id number] IMPRESSION: 1. Disc desiccation L5-S1 with chronic spondylolysis. No significant anterolis thesis. 2. Disc bulge L5-S1 slightly impinges the S1 nerve roots. Moderate LEFT greate r than RIGHT foraminal narrowing. 3. Annular bulging L2-3 with narrowing of the LEFT subarticular recess and mil d LEFT foraminal narrowing. 4. Moderate facet arthropathy L4-L5 and L5-S1
== END 2025-01-13 07:46 | disposition home or self-care (01) ==
LOC: RAD 07:46
PROVIDERS: PCP Nurse Practitioner Family; Visit Provider Registered Nurse
DX: M54.40 Lumbago with sciatica, unspecified side (principal); G89.29 Other chronic pain; M54.16 Radiculopathy, lumbar region; M51.379 Other intervertebral disc degeneration, lumbosacral region without mention of lumbar back pain or lower extremity pain; M43.07 Spondylolysis, lumbosacral region; M48.07 Spinal stenosis, lumbosacral region; R93.7 Abnormal findings on diagnostic imaging of other parts of musculoskeletal system; M51.369 Other intervertebral disc degeneration, lumbar region without mention of lumbar back pain or lower extremity pain; M48.061 Spinal stenosis, lumbar region without neurogenic claudication; M47.896 Other spondylosis, lumbar region; M47.897 Other spondylosis, lumbosacral region; M43.8X6 Other specified deforming dorsopathies, lumbar region; M25.78 Osteophyte, vertebrae
CPT/HCPCS: 72148